=== PATIENT | female | born 1940 | race Caucasian/White ===

== ENCOUNTER 2024-03-31 11:48 | Emergency (ER) | payer MEDICARE, OTHER ==
[2024-03-31 12:25] VITALS: BP 170/72; O2SAT 97
--- NOTE | 2024-03-31 12:39 | ED Physician Documentation ---
PD HPI UPPER EXT INJURY - Stated complaint Stated Complaint: GLF - Chief complaint Chief Complaint: Trauma Ext - History obtained from History obtained from: Patient - Additonal information Additional information: The patient comes to the emergency department chief complaint of ground-level fall and left thumb injury that happened yesterday afternoon. She states she was walking in from the garden and tripped over the cement walk, falling to the ground. She fell onto her outstretched hands and was not injured in any other way, but began to notice some left thumb pain and swelling that progressed throughout the afternoon. She states now it is so swollen that she can even bend it. No other complaints at this time. PD PAST MEDICAL HISTORY - Past Medical History Past Medical History: Yes Cardiovascular: Hypertension Respiratory: None Neuro: Dementia Endocrine/Autoimmune: HyPOthyroidism GI: Other RN CLINICAL RESEARCH: None : None HEENT: None Musculoskeletal: Other - Past Surgical History Past Surgical History: Yes General: Cholecystectomy, Other Ortho: Carpal Tunnel surgery, Spine surgery, Other - Present Medications Home Medications: Ambulatory Orders Medication Instructions Recorded Confirmed Cholecalciferol [Vitamin D3] 25 mcg PO DAILY 03/31/24 03/31/24 Donepezil HCl [Aricept] 10 mg PO DAILY 03/31/24 03/31/24 HYDROcod/ACETAM 5/325 [[place] 5/325] 1 - 2 tablet PO Q6H PRN #10 tablet 03/31/24 Levothyroxine Sodium 50 mcg ORAL DAILY 03/31/24 03/31/24 Losartan Potassium 25 mg PO DAILY 03/31/24 03/31/24 Multivitamin 1 each PO DAILY 03/31/24 03/31/24 - Allergies Allergies/Adverse Reactions: Allergies Allergy/AdvReac Type Severity Reaction Status Date / Time No Known Drug Allergies Allergy Verified 03/31/24 11:59 - Social History Does the pt smoke?: No Smoking Status: Former smoker Does the pt drink ETOH?: Yes ETOH Use: Wine Does the pt have substance abuse?: No - Immunizations Immunizations are current?: Yes - POLST Patient has POLST: No PD ED PE NORMAL - Vitals Vital signs reviewed: Yes - General General: Alert and oriented X 3, No acute distress, Well developed/nourished - HEENT HEENT: Atraumatic, EOMI, Moist mucous membranes - Neck Neck: Supple, no meningeal sign - Cardiac Cardiac: Strong equal pulses - Respiratory Respiratory: No respiratory distress - Derm Derm: Warm and dry, No rash, Other (Bruised and discolored left thumb with marked edema.) - Extremities Extremities: No deformity, Other (Entire left thumb firmly edematous, limited range of motion secondary to edema.) - Neuro Neuro: Alert and oriented X 3 - Psych Psych: Normal mood, Normal affect Results - Vitals Vitals: Oxygen O2 Source Room air - Rads (name of study) Left hand x-ray series Relevant Findings:: Final report received, See rad report (Comminuted intra- articular fracture of the proximal distal phalanx of the thumb.) Procedures - Splint (location) - Minor Left thumb Splint applied by: Tech Type of splint: Metal foam finger splint Other: Patient tolerated well, No complications, Neurovascular intact PD Medical Decision Making - ED course Complexity details: reviewed results, re-evaluated patient, considered differential, d/w patient ED course: X-ray was obtained which showed a fracture of the left thumb distal phalanx, involving IP joint. The patient was given a dose of Vicodin and placed in a splint. I discussed the case with Dr. Swenson, Hand specialist at [facility], who requested that we have the patient call his office with plan to see her within a week. I relayed this information to the patient who is agreeable to the plan. She is stable for discharge home. Departure - Departure Disposition: 01 Home, Self Care Clinical Impression: Thumb fracture Qualifiers: Encounter type: initial encounter Fracture type: closed Phalanx: distal Fracture alignment: nondisplaced Laterality: left Qualified Code(s): S62.525A - Nondisplaced fracture of distal phalanx of left thumb, initial encounter for closed fracture Condition: Stable Instructions: ED Fx Thumb Follow-Up: WALE SWENSON [Physician No Access] - Prescriptions: HYDROcod/ACETAM 5/325 [[place] 5/325] 1 - 2 tablet PO Q6H PRN #10 tablet PRN Reason: Pain Comments: The good news is that the fracture only involves one of the bones of your thumb and the other bone was just arthritis. However, it still does involve the joint which does make the fracture and it is healing more complicated. I discussed your case with Dr. Swenson of orthopedics/hand specialist at [facility] and he would like you to call his office to set up a follow-up appointment to be seen within the next week. You should call first thing tomorrow morning to set the appointment up or even this afternoon. Please keep the splint in place until you are seen by the hand specialist. I will send a prescription for your pain medication to the [facility] pharmacy here in [place]. You may take this as needed. I will also be helpful to prop your hand up whenever you are able and apply ice packs to help with the swelling. The swelling should start to dissipate over the next week or so, though it will take longer than this for the fracture to heal and you will probably have some degree of swelling throughout that process. If you begin to have extremely severe pain in your thumb, please come and get it reevaluated. If you feel as though the splint is too tight you may loosen it up a little as long as you are not able to move the thumb. Forms: PCP List Discharge Date/Time: 03/31/24 15:17
--- NOTE | 2024-03-31 13:26 | XRAY Report ---
PROCEDURE: Hand 3+V LT INDICATIONS: Trauma TECHNIQUE: 3 views of the hand(s) acquired. COMPARISON: None. FINDINGS: Bones: No fractures or dislocations. Severe diffuse osteopenia. Degenerative arthritis involving the first carpometacarpal joint and second through fourth DIP joints. No suspicious bony lesions. Soft tissues: No suspicious soft tissue calcifications or masses. IMPRESSION: 1. Severe osteopenia. 2. No acute bony abnormality noted. 3. Degenerative arthritis. Reviewed by: Kareem Ewing MD on 03/31/2024 1:24 PM PDT Approved by: Kareem Ewing MD on 03/31/2024 1:24 PM PDT Station ID: [id number]
[2024-03-31] MEDS: HYDROcod/ACETAM 5/325 MG TABLET PO STA (14:34)
== END 2024-03-31 15:17 | disposition home or self-care (01) ==
LOC: ED 11:48
DX: S62.525A Nondisplaced fracture of distal phalanx of left thumb, initial encounter for closed fracture (principal); W01.0XXA Fall on same level from slipping, tripping and stumbling without subsequent striking against object, initial encounter; I10 Essential (primary) hypertension; E03.9 Hypothyroidism, unspecified
CPT/HCPCS: 73130; 99283; 99284; A9270